=== PATIENT | female | born 1970 | race Two or more races ===

== ENCOUNTER 2021-12-18 15:21 | Emergency (ER) | payer MEDICAID, OTHER ==
[~2021-12-18] VITALS: Ht 162.6 cm; Wt 81.8 kg
[2021-12-18 15:55] LABS: Basophils # (auto) 0.1 10 ^3/uL (0-0.2); Basophils % (auto) 0.6 % (0.0-2.0); Eosinophils # (auto) 0.1 10 ^3/uL (0-0.8); Eosinophils % (auto) 1.1 % (0.0-7.0); Hematocrit 37.5 % (36.0-46.0); Hemoglobin 12.1 g/dL (12.2-16.2); Lymphocytes # (auto) 2.6 10 ^3/uL (0.4-5.4); Lymphocytes % (auto) 22.8 % (10.0-50.0); Mean Corpuscular Hemoglobin 29.7 pg (28.0-32.0); Mean Corpuscular Hgb Conc. 32.4 g/dL (32.0-36.0); Mean Corpuscular Volume 91.9 fL (80.0-100.0); Monocytes # (auto) 0.6 10 ^3/uL (0-1.3); Monocytes % (auto) 4.9 % (0.0-12.0); Neutrophils % (auto) 70.6 % (37.0-80.0); Red Blood Cells 4.08 10^6/uL (4.0-5.20); Red Cell Distribution Width 14.3 % (11.8-14.3); White Blood Cell 11.4 10^3/uL (4.4-10.8)
[2021-12-18 16:07] LABS: Urine Bacteria NONE SEEN /hpf (None Seen); Urine Blood 1+ /uL (Negative); Urine Specific Gravity 1.017 (1.001-1.035); Urine WBC 3 /hpf (0 - 5)
[2021-12-18 16:13] LABS: Albumin 3.9 g/dL (3.4-5.0); BUN/Creatinine Ratio 21.9; Calcium 8.6 mg/dL (8.5-10.1); Potassium 3.7 mmol/L (3.5-5.1)
[2021-12-18 16:16] LABS: Bilirubin, Total 0.2 mg/dL (0.2-1.0); Total Protein 7.4 g/dL (6.4-8.2)
[2021-12-18] MEDS ORDERED: IOHEXOL 300 MG/ML 100ML BOTTLE IJ ONE (18:25)
[2021-12-18 19:48] VITALS: BP 147/82
[2021-12-18] MEDS ORDERED: CEPH-322 PO (19:49)
== END 2021-12-18 20:46 | disposition home or self-care (01) ==
LOC: ER 15:25
DX: R10.33 Periumbilical pain (principal); E78.5 Hyperlipidemia, unspecified
CPT/HCPCS: 36415; 74177; 80053; 81001; 85025; 87205; 99285; Q9967

== ENCOUNTER 2022-02-17 17:04 | Emergency (ER) | payer MEDICAID ==
[~2022-02-17] VITALS: Ht 162.6 cm; Wt 81.8 kg
[~2022-02-17 17:04] MED LIST: CEPH-322 PO
[2022-02-17 19:34] VITALS: BP 124/67
[2022-02-17 20:29] LABS: Basophils # (auto) 0.1 10 ^3/uL (0-0.2); Basophils % (auto) 0.7 % (0.0-2.0); Eosinophils # (auto) 0.2 10 ^3/uL (0-0.8); Eosinophils % (auto) 2.2 % (0.0-7.0); Hematocrit 39.3 % (36.0-46.0); Hemoglobin 13.1 g/dL (12.2-16.2); Lymphocytes % (auto) 32.6 % (10.0-50.0); Mean Corpuscular Hemoglobin 30.8 pg (28.0-32.0); Mean Corpuscular Hgb Conc. 33.4 g/dL (32.0-36.0); Mean Corpuscular Volume 92.1 fL (80.0-100.0); Monocytes # (auto) 0.8 10 ^3/uL (0-1.3); Monocytes % (auto) 8.5 % (0.0-12.0); Neutrophils # (auto) 5.2 10 ^3/uL (1.6-8.6); Nucleated Red Blood Cells % 0.1 %; Red Blood Cells 4.26 10^6/uL (4.0-5.20); Red Cell Distribution Width 14.2 % (11.8-14.3); White Blood Cell 9.2 10^3/uL (4.4-10.8)
[2022-02-17 20:41] LABS: Albumin 3.9 g/dL (3.4-5.0); Calcium 9.1 mg/dL (8.5-10.1); Potassium 4.6 mmol/L (3.5-5.1)
[2022-02-17 20:45] LABS: BUN/Creatinine Ratio 32.4; Bilirubin, Total 0.3 mg/dL (0.2-1.0); Total Protein 7.5 g/dL (6.4-8.2)
[2022-02-17] MEDS ORDERED: ALBUAER3 IN (23:00)
[2022-02-17] MEDS ORDERED: PROM1SOL4 PO (23:00)
[2022-02-17] MEDS ORDERED: IBUP800T26 PO (23:00)
[2022-02-17] MEDS ORDERED: MONT-8 PO (23:00)
== END 2022-02-17 23:17 | disposition home or self-care (01) ==
LOC: ER 17:04
DX: U07.1 COVID-19 (principal); R05.9 Cough, unspecified; E78.5 Hyperlipidemia, unspecified; Z79.899 Other long term (current) drug therapy
CPT/HCPCS: 36415; 71045; 80053; 85025; 87426; 87804; 99284; J7030

== ENCOUNTER 2022-02-20 12:06 | Emergency (ER) | payer MEDICAID ==
[~2022-02-20] VITALS: Ht 162.6 cm; Wt 81.8 kg
[~2022-02-20 12:06] MED LIST changes: +ALBUAER3 IN; +IBUP800T26 PO; +MONT-8 PO; +PROM1SOL4 PO
[2022-02-20 12:39] LABS: Basophils # (auto) 0 10 ^3/uL (0-0.2); Basophils % (auto) 0.5 % (0.0-2.0); Eosinophils # (auto) 0.1 10 ^3/uL (0-0.8); Eosinophils % (auto) 1.6 % (0.0-7.0); Hemoglobin 13.7 g/dL (12.2-16.2); Lymphocytes # (auto) 1.9 10 ^3/uL (0.4-5.4); Lymphocytes % (auto) 22.1 % (10.0-50.0); Mean Corpuscular Hemoglobin 30.9 pg (28.0-32.0); Mean Corpuscular Hgb Conc. 33.6 g/dL (32.0-36.0); Mean Corpuscular Volume 92.2 fL (80.0-100.0); Monocytes # (auto) 0.3 10 ^3/uL (0-1.3); Monocytes % (auto) 3.8 % (0.0-12.0); Neutrophils # (auto) 6.3 10 ^3/uL (1.6-8.6); Red Blood Cells 4.44 10^6/uL (4.0-5.20); Red Cell Distribution Width 13.6 % (11.8-14.3); White Blood Cell 8.8 10^3/uL (4.4-10.8)
[2022-02-20] MEDS ORDERED: ASPirin 325 MG TAB PO ONE (12:45)
[2022-02-20 12:56] LABS: Albumin 3.7 g/dL (3.4-5.0); BUN/Creatinine Ratio 16.7; Calcium 8.6 mg/dL (8.5-10.1); Potassium 4.3 mmol/L (3.5-5.1)
[2022-02-20 12:59] LABS: Bilirubin, Total 0.3 mg/dL (0.2-1.0); Total Protein 7.3 g/dL (6.4-8.2)
[2022-02-20 15:14] VITALS: BP 124/67
== END 2022-02-20 15:13 | disposition home or self-care (01) ==
LOC: ER 12:07
DX: U07.1 COVID-19 (principal); R09.1 Pleurisy; R05.9 Cough, unspecified; E78.5 Hyperlipidemia, unspecified; Z79.1 Long term (current) use of non-steroidal anti-inflammatories (NSAID); Z79.899 Other long term (current) drug therapy
CPT/HCPCS: 36415; 71045; 80053; 84484; 85025; 93005

== ENCOUNTER 2023-01-28 14:43 | Inpatient (IN) | payer MEDICAID, OTHER ==
[~2023-01-28] VITALS: Ht 162.6 cm; Wt 84.9 kg
[~2023-01-28 14:43] MED LIST changes: -CEPH-322 PO; +CEPH250C PO; +IBUP-1455 PO; -IBUP800T26 PO
[2023-01-28 15:53] LABS: Basophils # (auto) 0.1 10 ^3/uL (0-0.2); Basophils % (auto) 1.1 % (0.0-2.0); Eosinophils # (auto) 0.1 10 ^3/uL (0-0.8); Eosinophils % (auto) 1.1 % (0.0-7.0); Hematocrit 39.6 % (36.0-46.0); Hemoglobin 13.3 g/dL (12.2-16.2); Lymphocytes # (auto) 2.3 10 ^3/uL (0.4-5.4); Lymphocytes % (auto) 21.3 % (10.0-50.0); Mean Corpuscular Hemoglobin 31.2 pg (28.0-32.0); Mean Corpuscular Hgb Conc. 33.7 g/dL (32.0-36.0); Mean Corpuscular Volume 92.6 fL (80.0-100.0); Monocytes # (auto) 0.8 10 ^3/uL (0-1.3); Monocytes % (auto) 7.3 % (0.0-12.0); Neutrophils # (auto) 7.3 10 ^3/uL (1.6-8.6); Neutrophils % (auto) 69.2 % (37.0-80.0); Nucleated Red Blood Cells % 0.1 %; Red Blood Cells 4.28 10^6/uL (4.0-5.20); Red Cell Distribution Width 13.9 % (11.8-14.3); White Blood Cell 10.6 10^3/uL (4.4-10.8)
[2023-01-28 16:17] LABS: Alanine Aminotransferase 70 U/L (7-40); Albumin 4.4 g/dL (3.2-4.8); Alkaline Phosphatase 101 U/L (46-116); Anion Gap 5 (5-15); Aspartate Aminotransferase 47 U/L (13-40); BUN/Creatinine Ratio 17.6 (10.0-20.0); Blood Urea Nitrogen 12 mg/dL (9-23); Calcium 8.7 mg/dL (8.7-10.4); Carbon Dioxide 28 mmol/L (20-30); Chloride 103 mmol/L (98-107); Glucose 105 mg/dL (74-106); Lipase 46 U/L (12-53); Potassium 3.5 mmol/L (3.5-5.1); Sodium 136 mmol/L (136-145)
[2023-01-28 16:18] LABS: Bilirubin, Total 0.5 mg/dL (0.2-1.0); Total Protein 7.4 g/dL (5.7-8.2)
[2023-01-28] MEDS ORDERED: ONDANSETRON HCL 4 MG/2 ML VIAL IV PRN (20:15)
[2023-01-28] MEDS ORDERED: PROMETHAZINE HCL 25 MG/ML 1ML IV PRN (20:15)
[2023-01-28] MEDS ORDERED: IBUPROFEN 600 MG TAB PO PRN (20:15)
[2023-01-29] MEDS: PANTOPRAZOLE 40 MG/10 ML VIAL INJ IV SCH ×3 (00:34→22:23)
[2023-01-29] MEDS: D5W/SOD CHL 0.45% 1,000 ML IV SCH ×3 (00:34→22:24)
[2023-01-29 00:40] VITALS: O2SAT 98
[2023-01-29] MEDS: MORPHINE SULFATE INJ 2 MG/ml SYRG IV PRN (00:54)
[2023-01-29 04:14] LABS: Basophils # (auto) 0 10 ^3/uL (0-0.2); Basophils % (auto) 0.3 % (0.0-2.0); Eosinophils # (auto) 0.1 10 ^3/uL (0-0.8); Eosinophils % (auto) 1.4 % (0.0-7.0); Hematocrit 37.5 % (36.0-46.0); Hemoglobin 12.7 g/dL (12.2-16.2); Lymphocytes # (auto) 2.4 10 ^3/uL (0.4-5.4); Lymphocytes % (auto) 23.1 % (10.0-50.0); Mean Corpuscular Hemoglobin 31.4 pg (28.0-32.0); Mean Corpuscular Hgb Conc. 33.9 g/dL (32.0-36.0); Mean Corpuscular Volume 92.7 fL (80.0-100.0); Monocytes # (auto) 0.9 10 ^3/uL (0-1.3); Monocytes % (auto) 8.3 % (0.0-12.0); Neutrophils # (auto) 6.9 10 ^3/uL (1.6-8.6); Neutrophils % (auto) 66.9 % (37.0-80.0); Red Blood Cells 4.04 10^6/uL (4.0-5.20); Red Cell Distribution Width 13.7 % (11.8-14.3); White Blood Cell 10.3 10^3/uL (4.4-10.8)
[2023-01-29 04:29] LABS: Alanine Aminotransferase 72 U/L (7-40); Albumin 4.2 g/dL (3.2-4.8); Alkaline Phosphatase 96 U/L (46-116); Anion Gap 3 (5-15); Aspartate Aminotransferase 48 U/L (13-40); BUN/Creatinine Ratio 16.1 (10.0-20.0); Bilirubin, Total 0.6 mg/dL (0.2-1.0); Blood Urea Nitrogen 10 mg/dL (9-23); Calcium 8.8 mg/dL (8.7-10.4); Carbon Dioxide 28 mmol/L (20-30); Chloride 106 mmol/L (98-107); Glucose 117 mg/dL (74-106); Potassium 3.5 mmol/L (3.5-5.1); Sodium 137 mmol/L (136-145); Total Protein 6.9 g/dL (5.7-8.2)
[2023-01-29 06:59] LABS: Urine Bacteria FEW /hpf (None Seen); Urine Blood 1+ /uL (Negative); Urine Clarity Clear (Clear); Urine Color Colorless (Yellow); Urine Protein, UAD Negative (Negative); Urine Specific Gravity 1.008 (1.001-1.035); Urine Urobilinogen Normal (Negative); Urine WBC 1 /hpf (0 - 5)
[2023-01-29] MEDS: HYDROcodone-ACET 5/325MG TAB PO PRN ×2 (11:07→20:48)
[2023-01-29 18:00] VITALS: BP 111/69; PULSE 73; RESP 16; TEMP 97.7; O2SAT 97
[2023-01-29] MEDS ORDERED: QUET100T47 PO (18:07)
[2023-01-29] MEDS ORDERED: INDO-34 PO (18:07)
[2023-01-29 20:00] VITALS: BP 110/70; PULSE 92; RESP 20; TEMP 97.9; O2SAT 96
[2023-01-29 22:00] VITALS: BP 110/70; PULSE 92; RESP 20; TEMP 97.9; O2SAT 96
[2023-01-29] MEDS: QUEtiapine FUMARATE 100 MG TAB PO PRN (22:23)
[2023-01-30] VITALS (7 sets, daily range): BP systolic 96–112; BP diastolic 55–69; PULSE 70–76; RESP 16–22; TEMP 97.7–99.8; O2SAT 96–98
[2023-01-30] MEDS: PANTOPRAZOLE 40 MG/10 ML VIAL INJ IV SCH ×2 (10:37→21:43)
[2023-01-30] MEDS: D5W/SOD CHL 0.45% 1,000 ML IV SCH (10:40)
[2023-01-30] MEDS: HYDROcodone-ACET 5/325MG TAB PO PRN (20:25)
[2023-01-30] MEDS: QUEtiapine FUMARATE 100 MG TAB PO PRN (21:43)
[2023-01-31] VITALS (7 sets, daily range): BP systolic 97–118; BP diastolic 57–72; PULSE 67–92; RESP 16–21; TEMP 98–98.4; O2SAT 96–98
[2023-01-31] MEDS: D5W/SOD CHL 0.45% 1,000 ML IV SCH (04:12)
[2023-01-31] MEDS: SUCRALFATE 1 GM/10 ML ORAL SUSP PO SCH ×4 (06:02→21:25)
[2023-01-31] MEDS: levoFLOXacin 500MG 100 ML IV SCH (10:19)
[2023-01-31] MEDS: PANTOPRAZOLE 40 MG/10 ML VIAL INJ IV SCH ×2 (10:27→21:24)
[2023-01-31] MEDS: HYDROcodone-ACET 5/325MG TAB PO PRN ×2 (14:24→20:19)
[2023-01-31] MEDS: metroNIDAZOLE 500MG/100ML 100 ML IV SCH ×2 (15:36→21:25)
[2023-01-31 15:43] LABS: INR 1.05 (0.9-1.15); Partial Thromboplastin Time 33.3 SEC (24.5-34.5)
[2023-01-31] MEDS: QUEtiapine FUMARATE 100 MG TAB PO PRN (21:40)
[2023-02-01] VITALS (7 sets, daily range): BP systolic 93–116; BP diastolic 51–70; PULSE 70–119; RESP 12–20; TEMP 97.8–98.6; O2SAT 94–97
[2023-02-01] MEDS: metroNIDAZOLE 500MG/100ML 100 ML IV SCH ×3 (05:35→22:50)
[2023-02-01] MEDS: SUCRALFATE 1 GM/10 ML ORAL SUSP PO SCH ×4 (06:03→22:49)
[2023-02-01 06:59] LABS: INR 1.08 (0.9-1.15); Partial Thromboplastin Time 32.8 SEC (24.5-34.5); Prothrombin Time 11.3 sec (9.3-11.8)
[2023-02-01 07:00] LABS: Basophils # (auto) 0.1 10 ^3/uL (0-0.2); Basophils % (auto) 0.6 % (0.0-2.0); Eosinophils # (auto) 0.2 10 ^3/uL (0-0.8); Hematocrit 35.3 % (36.0-46.0); Hemoglobin 12.1 g/dL (12.2-16.2); Lymphocytes # (auto) 2.6 10 ^3/uL (0.4-5.4); Lymphocytes % (auto) 27.7 % (10.0-50.0); Mean Corpuscular Hemoglobin 31.7 pg (28.0-32.0); Mean Corpuscular Hgb Conc. 34.1 g/dL (32.0-36.0); Monocytes # (auto) 0.7 10 ^3/uL (0-1.3); Monocytes % (auto) 7.3 % (0.0-12.0); Neutrophils # (auto) 5.9 10 ^3/uL (1.6-8.6); Neutrophils % (auto) 62.4 % (37.0-80.0); Red Cell Distribution Width 13.7 % (11.8-14.3); White Blood Cell 9.4 10^3/uL (4.4-10.8)
[2023-02-01 07:02] LABS: Alanine Aminotransferase 43 U/L (7-40); Albumin 3.9 g/dL (3.2-4.8); Alkaline Phosphatase 95 U/L (46-116); Anion Gap 7 (5-15); Aspartate Aminotransferase 20 U/L (13-40); BUN/Creatinine Ratio 11.3 (10.0-20.0); Bilirubin, Total 0.6 mg/dL (0.2-1.0); Blood Urea Nitrogen 8 mg/dL (9-23); Calcium 8.9 mg/dL (8.7-10.4); Carbon Dioxide 27 mmol/L (20-30); Chloride 106 mmol/L (98-107); Glucose 97 mg/dL (74-106); Potassium 3.7 mmol/L (3.5-5.1); Sodium 140 mmol/L (136-145); Total Protein 6.5 g/dL (5.7-8.2)
[2023-02-01] MEDS ORDERED: ceFAZolin 1GM/50ML 100 ML IV ONE (07:07)
[2023-02-01] MEDS ORDERED: LIDOCAINE 1% HCL (LOCAL ANESTH.) INJ 20ML MDV ONE (07:20)
[2023-02-01] MEDS ORDERED: EPINEPHrine HCL 1 MG/1 ML AMP ONE (07:21)
[2023-02-01] MEDS ORDERED: BUPIVACAINE 0.5% P/F INJ 10 ML VIAL ONE (07:21)
[2023-02-01] MEDS ORDERED: HYDROmorphone HCL 2 MG/ML VL/or syr ONE (07:29)
[2023-02-01] MEDS ORDERED: fentaNYL CITRATE 100 MCG/2 ML VL ONE (07:29)
[2023-02-01] MEDS ORDERED: DexAMETHasone SOD PHOS 10MG/1ML VIAL INJ ONE (07:30)
[2023-02-01] MEDS ORDERED: GLYCOPYRROLATE 0.2 MG/ML 1ML VIAL ONE (07:30)
[2023-02-01] MEDS ORDERED: ROCURONIUM 10MG/ML 10ML VIAL IV ONE (07:30)
[2023-02-01] MEDS ORDERED: LIDOCAINE 2% (LOCAL ANESTH.) PF 5ml SDV ONE (07:30)
[2023-02-01] MEDS ORDERED: MIDAZOLAM HCL 2MG/2ML 2ml VIAL (1mg/ml) ONE (07:30)
[2023-02-01] MEDS ORDERED: PROPOFOL 10 MG/ML 20 ML IV ONE (07:30)
[2023-02-01] MEDS ORDERED: ONDANSETRON HCL 4 MG/2 ML VIAL ONE (07:30)
[2023-02-01] MEDS ORDERED: HYDROmorphone HCL 2 MG/ML VL/or syr IV PRN (08:45)
[2023-02-01] MEDS ORDERED: ONDANSETRON HCL 4 MG/2 ML VIAL IV PRN (08:45)
[2023-02-01] MEDS ORDERED: ACCU-CHEK COMFORT CURVE STRIP VI ONE (08:45)
[2023-02-01] MEDS: levoFLOXacin 500MG 100 ML IV SCH (10:00)
[2023-02-01] MEDS: PANTOPRAZOLE 40 MG/10 ML VIAL INJ IV SCH ×2 (10:00→22:50)
[2023-02-01] MEDS: MORPHINE SULFATE INJ 2 MG/ml SYRG IV PRN ×2 (15:39→17:13)
[2023-02-01] MEDS ORDERED: IOHEXOL 300 MG/ML 100ML BOTTLE IJ ONE (15:50)
[2023-02-01] MEDS: HYDROcodone-ACET 5/325MG TAB PO PRN (20:02)
[2023-02-01] MEDS: QUEtiapine FUMARATE 100 MG TAB PO PRN (22:49)
[2023-02-02] VITALS (8 sets, daily range): BP systolic 90–115; BP diastolic 43–77; PULSE 64–82; RESP 18–78; TEMP 98–98.7; O2SAT 18–100
[2023-02-02] MEDS: HYDROcodone-ACET 5/325MG TAB PO PRN ×2 (04:42→17:59)
[2023-02-02 05:36] LABS: Basophils # (auto) 0 10 ^3/uL (0-0.2); Basophils % (auto) 0.1 % (0.0-2.0); Eosinophils # (auto) 0 10 ^3/uL (0-0.8); Hematocrit 34.4 % (36.0-46.0); Hemoglobin 11.6 g/dL (12.2-16.2); Lymphocytes % (auto) 15.7 % (10.0-50.0); Mean Corpuscular Hemoglobin 31.2 pg (28.0-32.0); Mean Corpuscular Hgb Conc. 33.7 g/dL (32.0-36.0); Mean Corpuscular Volume 92.8 fL (80.0-100.0); Monocytes # (auto) 0.6 10 ^3/uL (0-1.3); Neutrophils # (auto) 10.1 10 ^3/uL (1.6-8.6); Neutrophils % (auto) 79.2 % (37.0-80.0); Red Blood Cells 3.71 10^6/uL (4.0-5.20); White Blood Cell 12.8 10^3/uL (4.4-10.8)
[2023-02-02] MEDS: SUCRALFATE 1 GM/10 ML ORAL SUSP PO SCH ×4 (06:17→22:26)
[2023-02-02] MEDS: metroNIDAZOLE 500MG/100ML 100 ML IV SCH ×3 (06:17→22:27)
[2023-02-02] MEDS: PANTOPRAZOLE 40 MG/10 ML VIAL INJ IV SCH ×2 (10:09→22:27)
[2023-02-02] MEDS: levoFLOXacin 500MG 100 ML IV SCH (10:09)
[2023-02-02] MEDS: QUEtiapine FUMARATE 100 MG TAB PO PRN (22:26)
[2023-02-03] MEDS: SUCRALFATE 1 GM/10 ML ORAL SUSP PO SCH ×2 (04:17→11:17)
[2023-02-03] MEDS: metroNIDAZOLE 500MG/100ML 100 ML IV SCH ×2 (04:21→14:00)
[2023-02-03 05:51] VITALS: BP 96/53; PULSE 60; RESP 16; TEMP 98; O2SAT 94
[2023-02-03 07:30] VITALS: BP 106/67; PULSE 57; RESP 19; TEMP 98.4; O2SAT 97
[2023-02-03 08:00] VITALS: BP 106/67; PULSE 57; RESP 19; TEMP 98.4; O2SAT 97
[2023-02-03 08:59] LABS: Hepatitis B Core Total AB Negative (Negative)
[2023-02-03] MEDS: levoFLOXacin 500MG 100 ML IV SCH (10:10)
[2023-02-03] MEDS: PANTOPRAZOLE 40 MG/10 ML VIAL INJ IV SCH (10:10)
[2023-02-03] MEDS: HYDROcodone-ACET 5/325MG TAB PO PRN (10:15)
[2023-02-03 11:14] LABS: Hepatitis A Total Antibody Positive (Negative)
[2023-02-03 11:15] LABS: Hepatitis B Surface Antibody Negative (Negative); Hepatitis B Surface Antigen Negative (Negative); Hepatitis C Antibody Negative (Negative)
[2023-02-03] MEDS ORDERED: MET500T PO (11:59)
[2023-02-03] MEDS ORDERED: HYDR-4902 PO (11:59)
[2023-02-03] MEDS ORDERED: LEVO500T91 PO (11:59)
[2023-02-03 13:04] VITALS: BP 111/70; PULSE 60; RESP 18; TEMP 98; O2SAT 98
[2023-02-03 13:10] VITALS: BP 111/70; PULSE 60; RESP 18; TEMP 98; O2SAT 98
[2023-02-03 14:26] VITALS: BP 111/70; PULSE 60; RESP 18; TEMP 98; O2SAT 98
== END 2023-02-03 15:45 | disposition home or self-care (01) | DRG 234 ==
LOC: ER 14:43 → MERGE 21:06 → OVERFLOW 21:06 → WEST WING 01-29 17:58
PROVIDERS: ADMIT Nurse Practitioner Family; ATTEND Internal Medicine
PROC: 0DTJ4ZZ Resection of Appendix, Percutaneous Endoscopic Approach (ICD-10-PCS; principal; 2023-02-01 07:40)
DX: K35.80 Unspecified acute appendicitis (principal); E66.01 Morbid (severe) obesity due to excess calories; E78.5 Hyperlipidemia, unspecified; R79.89 Other specified abnormal findings of blood chemistry; Z68.31 Body mass index [BMI] 31.0-31.9, adult; Z82.49 Family history of ischemic heart disease and other diseases of the circulatory system; Z83.3 Family history of diabetes mellitus; Z71.3 Dietary counseling and surveillance
CPT/HCPCS: 36415; 71045; 74176; 74181; 76705; 78226; 80053; 81001; 82962; 83690; 83735; 84702; 85025; 85610; 85730; 86704; 86706; 86708; 86803; 86850; 86900; 86901; 87340; 93005; 96374; 96375; C9113; G0378; J0171; J0690; J1100; J1956; J2001; J2250; J2405; J2704; J3490

== ENCOUNTER 2024-10-22 15:26 | Emergency (ER) | payer MEDICAID ==
[~2024-10-22] VITALS: Ht 162.6 cm; Wt 98.5 kg
[~2024-10-22 15:26] MED LIST changes: +HYDR-4902 PO; +INDO-34 PO; +LEVO500T91 PO; +MET500T PO; +QUET100T47 PO
[2024-10-22 15:44] VITALS: TEMP 98.5
--- NOTE | 2024-10-22 15:57 | ED.PDOC ---
Back pain HPI HPI Comments 54-year-old female who is [place]ian-speaking presents to the ER with prior medical history of diabetes, high lipids: Surgical history of complaint of neck, shoulder and back pain. Patient reports on having right neck pain, right shoulder pain down to the right upper extremity, and upper back pain on the right lateralis, for the past 6 days. patient notes that she has been having a headache. Denies chills, fever, N/V/D, SOB, CP. No other associated symptoms, modifiers, recent injuries or sick contacts present at this time. Chief Complaint: Upper Extremity Time Seen by MD: 15:35 Primary Care Provider: [facility] Reviewed Notes: Nurses Notes, Medications, Allergies Allergies: Coded Allergies: NO KNOWN ALLERGIES (Unverified , 12/18/21) Home Meds Active Scripts Metronidazole (Metronidazole) 500 Mg Tab, 500 MG PO Q8HP PRN, #21 TAB Prov:RENEE BOUDREAUX MD 02/03/23 Levofloxacin Hemihydrate (LEVAQUIN 500 MG) 500 Mg Tab, 1 TAB PO DAILY, #7 TAB Prov:RENEE BOUDREAUX MD 02/03/23 Hydrocodone-Acetaminophen (Hydrocodone Bitartrate/AC 5-325 mg) 1 Tab Tab, 1 TAB PO Q4HP PRN, #20 TAB Prov:RENEE BOUDREAUX MD 02/03/23 Montelukast Sodium (MONTELUKAST SODIUM) 10 Mg Tab, 1 TAB PO DAILY, #30 TAB 5 Refills Prov:ITZ VALLE 02/17/22 Promethazine-Dm (Promethazine Dm 6.25-15 mg/5Ml) 1 Mayi Mayi, 5 ML PO TID PRN, #240 ML Prov:ITZ VALLE 02/17/22 Albuterol Sulfate (VENTOLIN MDI) 90 Mcg Ih, 90 MCG IN TID PRN, #1 INH Prov:ITZ VALLE 02/17/22 Ibuprofen Micronized (Ibuprofen) 800 Mg Tab, 800 MG PO TID PRN, #30 TAB Prov:ITZ VALLE 02/17/22 Cephalexin (KEFLEX CAPSULE) 250 Mg Cp, 1 CAP PO QID, #28 CAP Prov:YANA ALVARADO MD 12/18/21 Reported Medications Quetiapine Fumerate (QUETIAPINE FUMARATE) 100 Mg Tab, 2 TAB PO QHSP PRN for insomnia 01/29/23 Indomethacin (Indocin) 25 Mg Cp, 1 CAP PO TID 01/29/23 Information Source: Patient Mode of Arrival: Ambulatory Timing: Days Duration: Since onset, Days Location of Back pain: (R) Cervical, (R) Thoracic, (R) Upper back Severity: Moderate Prehospital treatment: None Quality: Aching Onset: Spontaneous History of: None Associated signs and symptoms: None Past Medical History PAST MEDICAL HISTORY: DM, High Lipids Surgical History: RIG HAND History: Denies all RIG HAND Hx Family History Family History: Reviewed,noncontributory to illness, Unknown Social History Smoker: Non-Smoker Alcohol: Denies ETOH Use Drugs: Denies Drug Use Lives In: Home Constitutional: denies: chills, diaphoresis, fatigue, fever, malaise, sweats, weakness, others EENTM: denies: blurred vision, double vision, ear bleeding, ear discharge, ear drainage, ear pain, ear ringing, eye pain, eye redness, hearing loss, mouth pain, mouth swelling, nasal discharge, nose bleeding, nose congestion, nose pain, photophobia, tearing, throat pain, throat swelling, voice changes, others Respiratory: denies: cough, hemoptysis, orthopnea, SOB at rest, shortness of breath, SOB with excertion, stridor, wheezing, others Cardiovascular: denies: chest pain, dizzy spells, diaphoresis, Dyspnea on exertion, edema, irregular heart beat, left arm pain, lightheadedness, palp itations, PND, syncope, others Gastrointestinal: denies: abdomen distended, abdominal pain, blood streaked bowels, constipated, diarrhea, dysphagia, difficulty swallowing, hematemesis, melena, nausea, poor appetite, poor fluid intake, rectal bleeding, rectal pain, vomiting, others Genitourinary: denies: abnormal vagina bleeding, burning, dyspareunia, dysuria, flank pain, frequency, hematuria, incontinence, pain, , vagina discharge, urgency, others Neurological: denies: dizziness, fainting, headache, left sided numbness, left sided weakness, numbness, paresthesia, pre-existing deficit, right sided numbness, right sided weakness, seizure, speech problems, tingling, tremors, weakness, others Musculoskeletal: reports: back pain (Upper back, scapula and trapezius all of the right side); denies: gout, joint pain, joint swelling, muscle pain, muscle stiffness, neck pain, others Integumetry: denies: bruises, change in color, change in hair/nails, dryness, laceration, lesions, lumps, rash, wounds, others Allergic/Immunocompromised: denies: Difficulty Healing, Frequent Infections, Hives, Itching, others Hematologic/Lymphatic: denies: anemia, blood clots, easy bleeding, easy bruising, swollen glands, others Endocrine: denies: excessive hunger, excessive sweating, excessive thirst, excessive urination, flushing, intolerance to cold, intolerance to heat, unexplained weight gain, unexplained weight loss, others Psychiatric: denies: anxiety, bipolar disorder, depression, hopeless, panic disorder, schizophrenia, sleepless, suicidal, others All Other Systems: Reviewed and Negative Physical Exam Exam Comments Tenderness on the scapula and trapezius of the right side General Appearance: No Apparent Distress, Normal HEENT: Normal ENT Inspection, Pharynx Normal, TMs Normal Neck: Full Range of Motion, Non-Tender, Normal, Normal Inspection Respiratory: Chest Non-Tender, Lungs Clear, No Accessory Muscle Use, No Respiratory Distress, Normal Breath Sounds Cardiovascular: No Edema, No JVD, No Murmur, No Gallop, Normal Peripheral Pulses, Regular Rate/Rhythm Breast Exam: Deferred Gastrointestinal: No Organomegaly, Non Tender, No Pulsatile Mass, Normal Bowel Sounds, Soft Genitalia: Deferred Pelvic: Deferred Rectal: Deferred Extremities: No calf tenderness, Normal capillary refill, Normal inspection, Normal range of motion, Non-tender, No pedal edema Musculoskeletal : Apperance: Normal Neurologic: Alert, chief port director II-XII nml as Tested, No Motor Deficits, Normal Affect, Normal Mood, No Sensory Deficits Cerebellar Function: Normal Reflexes: Normal Skin: Dry, Normal Color, Warm Lymphatic: No Adenopathy Was a procedure done? Was a procedure done?: No Back Pain Differential Dx Differential Diagnosis: Strain X-Ray, Labs, Meds, VS Vital Signs Date Time Temp Pulse Resp B/P (MAP) Pulse Ox O2 Delivery O2 Flow Rate FiO2 10/22/24 16:07 64 18 135/61 (85) 98 10/22/24 16:07 64 18 98 Room Air 10/22/24 15:44 98.5 69 16 119/67 (84) 98 98.5 Current Medications Medications (Trade) Dose Ordered Sig/Landy Route Start Time Stop Time Status Last Admin Methylprednisolone Sodium Succinate (Solu Medrol) 125 mg ONCE ONCE IM 10/22/24 15:45 10/22/24 15:46 DC 10/22/24 16:06 Ketorolac Tromethamine (Toradol Injection) 30 mg ONCE ONCE IM 10/22/24 15:45 10/22/24 15:46 DC 10/22/24 16:05 X-Ray, Labs, Meds, VS Comment Imaging: X-rays and CT scans were reviewed and interpreted by this provider, imaging shows no fractures and no pathological disease. Pending radiology review. Laboratory: Labs reviewed and interpreted by this provider. No significant abnormalities noted. Patient has prior medical visits reviewed. Med reconciliation performed Vital signs reviewed Time of 1ST Reevaluation: 16:05 Reevaluation 1ST: Unchanged Patient Education/Counseling: Diagnosis, Treatment, Prognosis, Need For Follow Up (Follow up in the emergency department in the next 24-48 hours if symptoms worsen. It was advised to follow up with your primary care doctor in the next 3-4 days for further evaluation.) Family Education/Counseling: No Family Present SEPSIS Sepsis Screen Date sepsis recognized/suspect: Oct 22, 2024 Time Sepsis recognized/suspect: 1526 Recent Procedure: No On Antibiotic Therapy: No Respiratory Rate >20: No Heart Rate >90: No Temp<36 C (96.8 F) or >38.3 C: No SBP <90 or MAP <65 mmHG: No New Acute Mental Status Change: No Is the patient on CPAP, BIPAP,: No Vital Signs Date Time Temp Pulse Resp B/P (MAP) Pulse Ox O2 Delivery O2 Flow Rate FiO2 10/22/24 16:07 64 18 135/61 (85) 98 10/22/24 16:07 64 18 98 Room Air 10/22/24 15:44 98.5 69 16 119/67 (84) 98 98.5 Medications Medications Dose Ordered Sig/Landy Route Start Time Stop Time Status Last Admin Dose Admin Ketorolac Tromethamine 30 mg ONCE ONCE IM 10/22/24 15:45 10/22/24 15:46 DC 10/22/24 16:05 Methylprednisolone Sodium Succinate 125 mg ONCE ONCE IM 10/22/24 15:45 10/22/24 15:46 DC 10/22/24 16:06 Departure 1 Departure Time of Disposition: 16:56 Impression: Primary Impression: Torticollis, acute Disposition: 01 HOME / SELF CARE / HOMELESS Condition: Fair e-Prescriptions Cyclobenzaprine Hcl (Cyclobenzaprine Hcl) 5 Mg Tab 1 TAB PO TID, #30 TAB Prov: TIZ VALLE 10/22/24 Discharged With: Self Critical Care Note Critical Care Time?: No Stability Stability form required: No Heart Score Heart Score: Heart Score Response (Comments) Value History N/A 0 EKG N/A 0 Age N/A 0 Risk Factors N/A 0 Troponin N/A 0 Total 0 I personally scribed for ITZ VALLE ([email or web address]) on 10/22/24 at 15:57. Electronically submitted by Yusef Blas ([email or web address]). ITZ VALLE Oct 22, 2024 15:57
[2024-10-22] MEDS: KETOROLAC TROMETH 30 MG/ML 1ML VIAL IM ONE (16:05)
[2024-10-22] MEDS: methylPREDNISolone SOD SUCC 125 MG/2 ML VL IM ONE (16:06)
[2024-10-22 16:07] VITALS: BP 135/61; PULSE 64; RESP 18; O2SAT 98
[2024-10-22] MEDS ORDERED: CYCL-837 PO (16:57)
== END 2024-10-22 17:17 | disposition home or self-care (01) ==
LOC: ER 15:26
DX: M43.6 Torticollis (principal); E11.9 Type 2 diabetes mellitus without complications; E78.5 Hyperlipidemia, unspecified; Z79.899 Other long term (current) drug therapy; Z98.890 Other specified postprocedural states
CPT/HCPCS: 96372; 99284; J1885; J2919